=== PATIENT | female | born 1995 | race Two or more races ===

== ENCOUNTER 2023-03-13 22:21 | Emergency (ER) | payer BC, MEDICAID ==
[~2023-03-13] VITALS: Ht 162.6 cm; Wt 105.2 kg
[2023-03-13 22:30] VITALS: BP 146/87; PULSE 90; RESP 18; TEMP 98.1; O2SAT 98
[2023-03-14] MEDS ORDERED: ACET500T58 PO (01:18)
[2023-03-14] MEDS ORDERED: AZIT-43 PO (01:18)
== END 2023-03-14 01:35 | disposition home or self-care (01) ==
LOC: ER 22:21
DX: J06.9 Acute upper respiratory infection, unspecified (principal)